=== PATIENT | male | born 1995 | race Caucasian/White ===

== ENCOUNTER 2018-10-06 15:44 | Observation (INO) | payer MEDICAID ==
[2018-10-06] MEDS ORDERED: NS 500 ML IV ONE (15:49)
[2018-10-06 16:22] LABS: PLATELET COUNT 264 10^3/uL (150-400)
[2018-10-06] MEDS ORDERED: HYDROmorphONE/DILAUDID 2 MG/ML INJ IVP ONE (16:40)
[2018-10-06] MEDS ORDERED: ONDANSETRON 4 MG/2 ML VIAL IVP ONE (16:41)
--- NOTE | 2018-10-06 16:43 | EDPHY ---
H & P Time Seen by Provider: 10/06/18 15:46 HPI/ROS: HPI Right testicular pain. 22-year-old male by private vehicle from the [facility]. I received a call from the [facility] that the patient had an ultrasound of his right testicle that demonstrated a right testicular torsion and right-sided hydrocele. This ultrasound was done this morning. The physician I spoke to at [facility] told me the patient had had testicular pain for about a week. The patient tells me that he was seen at [facility] last Saturday for right-sided testicular pain. He was placed on doxycycline for a diagnosis of epididymitis. He reports the pain got somewhat better but then returned he reports that over the weekend, the pain became significantly worse and he was seen again at the urgent care today. He obtained the ultrasound. Diagnosis of testicular torsion on the right was established and he was sent down to the emergency department for evaluation. Patient's last meal was this morning at 8:00 a.m.. Immediately after I spoke with the physician at the [facility], I called the on-call urologist, this is Dr. Castro, he was in the OR but I spoke with his nurse certified ophthalmic surgical assistant who was at his side. I explained that I had a young male coming down from the [place] with an established diagnosis of right sided testicular torsion. I explained that I would call him back as soon as the patient arrived in our emergency department. ROS: Constitutional: No fever, no chills. No weakness. Eyes: No discharge. No changes in vision. ENT: No sore throat. No nasal congestion or rhinorrhea. Respiratory: No cough. No shortness of breath. Cardiac: No chest pain, no palpitations. Gastrointestinal: No abdominal pain, no vomiting, no diarrhea. Genitourinary: No hematuria. As above. Musculoskeletal: No back pain. No neck pain. No myalgias or arthralgias. Skin: No rashes. Neurological: No headache. No focal weakness or altered sensation. Past medical history: Social history: Physical Exam: General Appearance: Alert, no distress. This patient is responding to questions appropriately and in full sentences. This patient appears well- hydrated and well-nourished. Eyes: Pupils equal and round no pallor or injection. No lid edema, erythema or injection. ENT, Mouth: Mucous membranes are moist. The pharyngeal tissues are unremarkable. No edema or swelling. No asymmetry suggestive of abscess. No erythema or exudates. Respiratory: There are no retractions, lungs are clear to auscultation with good air movement bilaterally. Cardiovascular: Regular rate and rhythm. No murmur. Gastrointestinal: Abdomen is soft and nontender, no masses, bowel sounds normal. No focal tenderness at McBurney's point. No Stephenson sign. Neurological: Motor sensory function is grossly intact. Cranial nerves are normal. Gait is normal. Skin: Warm and dry, no rashes. Musculoskeletal: Neck is supple and nontender. Extremities are symmetrical. All joints range without pain or impingement. Psychiatric: No agitation. No depression. Database: EKG: Imaging: Loaded the files of the patient's testicular ultrasound: Finding significant for large hydrocele and a vascular right testicle. Procedures: Emergency department course: Triage vital signs reviewed and are normal. The patient is afebrile. An IV was placed. He was started on IV normal saline with 1 L to be given over the next hour. He will be given 0.5 mg of IV hydromorphone for pain and 4 mg of IV Zofran for nausea. Immediately after arrival Dr. Castro was paged. 4:40 p.m., I spoke with Dr. Castro. Case discussed in detail. He will be down to see the patient shortly. 4:45 p.m., Dr. Castro at the patient's bedside, plan for operative management. 4:55 p.m., spoke with Dr. Castro, he just evaluated the patient. He will take the patient to the operating room now for further management. The patient's remaining emergency department course under my care has been uneventful. The patient was admitted to the OR in stable condition. Differential Diagnosis: The differential diagnosis on this patient includes but is not limited to testicular torsion, testicular contusion, hydrocele, epididymitis. This represents a partial list of diagnoses considered. These considerations are based on history, physical exam, past history, reassessment and diagnostic testing. Smoking Status: Never smoked Constitutional: Initial Vital Signs Temperature (C) 36.7 C 10/06/18 15:54 Heart Rate 82 10/06/18 15:54 Respiratory Rate 16 10/06/18 15:54 Blood Pressure 120/87 H 10/06/18 15:54 O2 Sat (%) 93 04/08/19 15:54 O2 Delivery Mode Room Air Allergies/Adverse Reactions: No Known Allergies Allergy (Unverified 10/06/18 15:53) Home Medications: Medication Instructions Recorded Hydrocodone/Acetaminophen [Lorton 1 - 2 each PO Q6 PRN #15 tablet 10/06/18 5-325 Tablet] Medical Decision Making - Data Points Laboratory Results: Laboratory Results 10/06/18 16:13 10/06/18 16:13 Medications Given: Discontinued Medications Bupivacaine HCl (Sensorcaine 0.5% Vial) Confirm Administered Dose 30 ml .ROUTE .STK-MED ONE Stop: 10/06/18 17:30 Last Admin: 10/06/18 19:01 Dose: 27 ml Bupivacaine HCl/Epinephrine Bitart (Bupivacaine/Epi) Confirm Administered Dose 30 ml .ROUTE .STK-MED ONE Stop: 10/06/18 17:30 Last Admin: 10/06/18 19:01 Dose: Not Given Hydromorphone HCl (Dilaudid) 0.5 mg IVP EDNOW ONE Stop: 10/06/18 16:41 Last Admin: 10/06/18 16:53 Dose: 0.5 mg Sodium Chloride (Ns) 500 mls @ 0 mls/hr IV ONCE ONE; Wide Open PRN Reason: Protocol Stop: 10/06/18 15:50 Last Admin: 10/06/18 15:55 Dose: 500 mls Lactated Ringer's (Lr) 1,000 mls @ 0 mls/hr IV ONCE ONE PRN Reason: KVO Stop: 10/06/18 17:18 Last Admin: 10/06/18 17:54 Dose: 1,000 mls Ondansetron HCl (Zofran) 4 mg IVP EDNOW ONE Stop: 10/06/18 16:42 Last Admin: 10/06/18 16:53 Dose: 4 mg Oxycodone HCl (Oxycodone Ir) 5 - 10 mg PO Q4HRS PRN PRN Reason: PACU, Pain Severe Stop: 10/06/18 19:58 Last Admin: 10/06/18 20:54 Dose: 5 mg Departure - Departure Disposition: To OP Cath/Surgery Clinical Impression: Right testicular torsion Condition: Good
[2018-10-06] MEDS ORDERED: LR 1,000 ML IV ONE (17:17)
[2018-10-06] MEDS ORDERED: BUPIVACAINE 0.5% 30 ML SDV ONE (17:29)
[2018-10-06] MEDS ORDERED: BUPIVACAINE/EPI 0.5% 30 ML SDV ONE (17:29)
[2018-10-06] MEDS ORDERED: PROPOFOL 200 MG/20 ML VIAL ONE (17:38)
[2018-10-06] MEDS ORDERED: fentaNYL 100 MCG/2 ML INJ ONE (17:38)
[2018-10-06] MEDS ORDERED: MIDAZOLAM 2 MG/2 ML VIAL ONE (17:38)
[2018-10-06] MEDS ORDERED: ONDANSETRON 4 MG/2 ML VIAL ONE (17:39)
[2018-10-06] MEDS ORDERED: METOCLOPRAMIDE 10 MG/2 ML VIAL ONE (17:39)
[2018-10-06] MEDS ORDERED: LIDOCAINE 2% JELLY 6 ML TOPICAL SYR ONE (17:39)
--- NOTE | 2018-10-06 17:52 | PDANEPAE ---
ANE Past Medical History - Pulmonary History Hx Oxygen in Use at Home: No Hx Sleep Apnea: No - Endocrine History Hx Diabetes: No ANE Review of Systems Review of Systems: ANE Patient History - Allergies Allergies/Adverse Reactions: No Known Allergies Allergy (Unverified 10/06/18 15:53) - Home Medications Home Medications: NK [No Known Home Meds] 10/06/18 [Last Taken Unknown] - NPO status NPO Since - Liquids (Date): 10/06/18 NPO Since - Liquids (Time): 15:30 NPO Since - Solids (Date): 10/06/18 NPO Since - Solids (Time): 14:00 - Smoking Hx Smoking Status: Never smoked ANE Labs/Vital Signs - Labs Result Diagrams: 10/06/18 16:13 10/06/18 16:13 - Vital Signs Blood Pressure: 128/78 Heart Rate: 68 Respiratory Rate: 18 O2 Sat (%): 94 Height: 187.96 cm Weight: 80.286 kg ANE Physical Exam - Airway Mallampati Score: Class 1 - ASA Status ASA Status: I, E ANE Anesthesia Plan Anesthesia Plan: general endotracheal anesthesia, GA w LMA
[2018-10-06] MEDS ORDERED: CEFAZOLIN 2 GM/DEXTROSE/100 ML BAG IV ONE (17:53)
--- NOTE | 2018-10-06 18:56 | POSTANESTH ---
Post Anesthetic Evaluation Cardiovascular Status: Normal, Stable Respiratory Status: Normal, Stable Level of Consciousness/Mental Status: Can Participate in Eval Pain Control: Adequate, Prn Tx Ordered Nausea/Vomiting Control: Adequate, Prn Tx Ordered Complications Possibly Related to Anesthesia: None Noted
[2018-10-06] MEDS ORDERED: MEPERIDINE 25 MG/0.5 ML AMP IVP PRN (18:58)
[2018-10-06] MEDS ORDERED: fentaNYL 100 MCG/2 ML INJ IVP PRN (18:58)
[2018-10-06] MEDS ORDERED: NALOXONE HCL 0.4 MG/ML INJ IVP PRN (18:58)
[2018-10-06] MEDS ORDERED: oxyCODONE IR 5 MG TAB PO PRN (18:58)
[2018-10-06] MEDS ORDERED: ACETAMINOPHEN 500 MG TAB PO PRN (18:58)
[2018-10-06] MEDS ORDERED: LR 500 ML IV PRN (18:58)
[2018-10-06] MEDS ORDERED: PROMETHAZINE HCL 25 MG/ML INJ IVP PRN (18:58)
--- NOTE | 2018-10-06 18:58 | POSTOPPROG ---
Post Op Note Date of Operation: 10/06/18 (ER # [id number]) Surgeon: Reymundo Cantu (OR # [id number]) Anesthesia: LMA Pre-op Diagnosis: Right testicular hemorrhage Post-op Diagnosis: Right testicular torsion w/ infarction Procedure: Scrotal exploration, right orchiectomy, left testis fixation Findings: See op note Inf/Abcess present in the surg proc area at time of surgery?: No EBL: Minimal Complications: None Bowel Protocol: N/A Clean Closure Performed: N/A Specimen(s): Right testis
[2018-10-06 20:22] VITALS: BP 115/65
[2018-10-06] MEDS ORDERED: oxyCODONE IR 5 MG TAB ONE (20:47)
--- NOTE | 2018-10-06 21:49 | GOP ---
[f rep st] OPERATIVE REPORT DATE OF OPERATION: 10/06/2018 SURGEON: Reymundo Cantu MD ANESTHESIA: Laryngeal mask with local. PREOPERATIVE DIAGNOSIS: Right testicular hemorrhage, possible torsion. POSTOPERATIVE DIAGNOSIS: Right testicular torsion with ipsilateral infarction. PROCEDURES PERFORMED: 1. Scrotal exploration and right orchiectomy. 2. Left testicular fixation. FINDINGS: Severe right testicular torsion with resulting ipsilateral testicular infarction. SPECIMENS: Right testis. ESTIMATED BLOOD LOSS: Minimal. INDICATIONS: This gentleman presented to the emergency room this afternoon with progressively worsening right scrotal pain and swelling since last . Scrotal sonography was performed earlier today at [facility] which was worrisome for the presence of intratesticular hemorrhage on the right side and possible torsion. It was recommended that he undergo intraoperative evaluation. The indications for the procedures, as well as potential risks and complications were discussed with the patient preoperatively. He appeared to understand, his questions were answered, and he wished to proceed. Written informed surgical consent was thereafter obtained. DESCRIPTION OF PROCEDURE: The patient was brought to the operating room and administered laryngeal mask anesthesia. He was carefully placed in the supine position on the operating room table. The genital area and lower abdomen were sterilely prepped and draped in standard fashion. A total of 27 cc of 0.5% Marcaine without epinephrine was used for local anesthetic. A midline anterior longitudinal scrotal incision was made with a scalpel and carried through the right scrotal dartos with electrocautery. The right testis with surrounding vaginalis was delivered. The vaginalis was under significant tension due to contained fluid. The vaginalis was opened along the anterior aspect and there was a fair amount of lightly serosanguineous fluid that was drained from the right hemiscrotum. Examination of the testicle/epididymal complex revealed tyrone infarction and hemorrhagic necrosis. The testicle and epididymal complex were twisted 720 degrees along the base of the pedicle, right at the junction between the testicular epididymal complex and proximal spermatic cord. The torsion was untwisted, but there was no evidence of any viability to the testicle. As a result, I decided to perform an orchiectomy. The proximal spermatic cord was divided into 2 segments and each segment was ligated with a series of 2-0 Vicryl free ties and stick ties. The testis and epididymis were then transected with scissors and passed off the table. It should be mentioned that the testicular epididymal complex was transected before ligating the cord stump with the above-mentioned Vicryl sutures. Once hemostasis was confirmed, I then turned my attention to performing a fixation of the left side. The left hemiscrotum was entered by incising the scrotal dartos with electrocautery. The testis inside the tunica vaginalis was opened along the anterior aspect. The testis on the left side appeared normal. I used 3 separate 5-0 Monocryl sutures to tack the left testis to the internal aspect of the scrotal wall with 2 sutures laterally and 1 inferiorly. This resulted in nice fixation. The testis was delivered back within the left hemiscrotum in proper position and lie. The incision was then closed in 1 layer utilizing a running 4-0 chromic suture that incorporated the scrotum, underlying scrotal dartos, and scrotal raphe. The wound was then dressed with Xeroform gauze, Telfa, 4x4s, scrotal fluffs, and scrotal support. The patient was then awakened , transferred to his bed, and taken to the recovery room. He tolerated the procedure well overall. COMPLICATIONS: None. DISPOSITION: He was transferred to the recovery room in stable condition. /[id number]/MODL MTDD
--- NOTE | 2018-10-07 05:30 | GCON ---
[f rep st] CONSULTATION EMERGENCY ROOM CONSULTATION NOTE DATE OF CONSULTATION: 10/06/2018 REASON FOR CONSULTATION: Right testicular pain and abnormality. HISTORY: This is a 22-year-old gentleman who started experiencing right-sided scrotal pain approxima tely 1 week ago. He was seen at [facility] at that time and diagnosed with epididymide s, subsequently started on doxycycline. He states he initially improved but then last sukhdeep amrti started experiencing progressively worsening right-sided scrotal pain and swelling. Unfortunately , he did not seek additional medical care until being seen at [facility] earlier this morning. I spo ke with the nurse practitioner at [facility] at that time and recommended that the patient undergo sc rotal sonography as soon as possible. An appointment was then made for him to see me on Saturday (flori sarkar.) Scrotal sonography was performed at [facility] in [place]. This revealed evidence britton ggestive for possible testicular torsion. The patient was instructed to present to the emergency yelena , which he did. I was asked to see the patient thereafter. The patient denies any precipitating tr auma, fevers, flu-like symptoms, dysuria, gross hematuria, nor changes in his otherwise normal voidin g pattern. Interestingly, the patient did experience an episode of right scrotal pain at around age 16 that was fairly acute in onset and dissipated within a few hours. However, the pain was severe at that time t o the point that he still remembers that episode. He denies any similar episodes of pain in the past . PAST MEDICAL HISTORY: Healthy. PAST SURGICAL HISTORY: None of pertinence. PRESENTING MEDICATIONS: Doxycycline. MEDICAL ALLERGIES: None known. FAMILY HISTORY: Not contributory. SOCIAL HISTORY: The patient is single and lives currently in the [facility]. He is a senior at the [employer] and is originally from [place]. 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 REVIEW OF SYSTEMS: Unremarkable other than mentioned above in the HPI and past medical history. PHYSICAL EXAMINATION: GENERAL: Well-developed, well-nourished white male in no acute distress prese ntly. VITAL SIGNS: Blood pressure 120/87, pulse 82, respiratory rate 16, oxygen saturation 93% on r oom air, temperature 36.7 celsius, height 188 cm, weight 80 kg, BMI 22.7. HEENT: Normocephalic/atra umatic. NECK: Normal appearance. HEART: Regular rate. CHEST: Unlabored respiratory pattern. AB DOMEN: Soft without palpable masses, no obvious organomegaly. GENITALIA: Significant right hemiscr otal swelling with overlying nonstreaking cutaneous erythema. It is difficult to palpate the right t estis due to significant patient discomfort. It is also difficult to palpate the spermatic cord at t he level of the pubic tubercle and just distal to that because of significant patient discomfort with attempted examination. Left hemiscrotum appears normal. Phallus and urethral meatus are normal. V ASCULAR: Normal femoral pulses bilaterally. NEUROLOGIC: He is alert and oriented. He answers all questions appropriately with normal mood and affect. EXTREMITIES: Warm without cyanosis, clubbing, nor significant edema. RADIOGRAPHIC STUDIES: Scrotal sonography earlier today from [facility]: Upon my review, notable for significant right intratesticular hemorrhage and possibly some hemorrhage surrounding the right t estis. The hemorrhage appears to be involving at least the superior 1/2 of the right testis. It is difficult to determine whether blood flow was documented within the testicle. There is no obvious ab normal testicular mass appreciated. The left testis and hemiscrotal complex appears normal. LABORATORY: CBC and chemistry panel are normal from today. IMPRESSION: Right testicular hemorrhage with concerns for testicular torsion that started last . Physical exam and scrotal sonography findings reviewed in detail with the patient this afternoo n. All of his questions were answered. PLAN: Proceed with emergent scrotal exploration and other indicated procedures, including possible o rchiectomy immediately. All aspects regarding surgery were reviewed in detail with the patient today . It has been explicitly explained to him that he might need to undergo orchiectomy if the testicle is indeed infarcted. /[id number]/MODL
== END 2018-10-06 21:03 | disposition home or self-care (01) ==
LOC: FSGY 17:33
PROVIDERS: ADMIT Specialist; ATTEND Specialist
DX: N44.00 Torsion of testis, unspecified (principal); N50.1 Vascular disorders of male genital organs; E86.0 Dehydration
CPT/HCPCS: 96374; J0690; J1170; J2250; J2405; J2704; J2765; J3010

== ENCOUNTER 2018-10-09 08:50 | Emergency (ER) | payer MEDICAID ==
[2018-10-09 08:55] VITALS: BP 119/70
--- NOTE | 2018-10-09 10:00 | EDPHY ---
HPI/HX/ROS/PE/MDM Narrative: CHIEF COMPLAINT: Penis swelling HPI: The patient is a 22-year-old male who underwent a right-sided orchectomy [address] Demetrius Cantu secondary to testicular torsion. His postoperative course has been uneventful. This morning when he awoke he noted swelling to the shaft of his penis. He denies worsening pain, fever or discharge. He denies pain with urination. REVIEW OF SYSTEMS: Aside from elements discussed in the HPI, a comprehensive 10-point review of systems was reviewed and is negative. PMH: Includes testicular torsion. Recent orchiectomy. SOCIAL HISTORY: Single. Denies drug or alcohol abuse. PHYSICAL EXAM: General:Patient is alert, in no acute distress. Patient appears comfortable and well appearing. ENT:Eyes are normal to inspection. ENT inspection normal. Abdomen:The abdomen is nontender to palpation. There are no peritoneal signs. There are normal bowel sounds. : There is circumferential nontender non erythematous edema to approximately the mid shaft of the penis. There is no phimosis or paraphimosis. The patient appears circumcised. There is no induration, or ecchymosis to the penis. The scrotum is diffusely swollen consistent with postoperative state. Incision looks clean dry and intact with no active discharge. Perineum normal. No active bleeding. Neuro: Oriented x3. Normal motor function. Normal sensory function. ED Course: 949: I spoke to Dr. Lam from Urology. He did not examine patient but over phone agrees with my assessment that this likely represents normal post- operative edema. I discussed with the patient. He is very pleasant and polite , but states that "the last time someone told me it was no big deal, I lost a testicle and am now suing them for malpractice." He would really like to be evaluated by a Urologist. I have asked for Dr. Cantu to be re-paged. 1015: I spoke with Dr. Cantu by phone and expressed patient's concerns. He agrees with my assessment. He is willing to come evaluate the patient after his current surgical case. I explained this to the patient and told him we would be happy to observe him here in the ED until Dr. Cantu could evaluate him , but he has decided to go home. He understands risks of not waiting for Urology evaluation including infection, need for further surgery, functional impairment etc. MDM: This patient presents with what appears to me to be dependent edema of his penile shaft secondary to his recent operation. I see no signs of infection or ischemia. The patient was unwilling to wait for formal urology exam and evaluation. We discussed strict return precautions and I recommended that the patient follow up with his urologist as soon as possible, within 48 hr. General Time Seen by Provider: 10/09/18 08:57 Initial Vital Signs: Initial Vital Signs Temperature (C) 36.5 C 10/09/18 08:53 Heart Rate 74 10/09/18 08:53 Respiratory Rate 16 10/09/18 08:53 Blood Pressure 119/70 10/09/18 08:53 O2 Sat (%) 95 10/09/18 08:53 O2 Delivery Mode Room Air Allergies/Adverse Reactions: No Known Allergies Allergy (Unverified 10/09/18 08:53) Home Medications: Medication Instructions Recorded Acetaminophen 10/09/18 Departure - Departure Disposition: Home, Routine, Self-Care Clinical Impression: Postoperative edema Condition: Good Instructions: Additional Information Additional Instructions: Follow-up with Dr. Cantu's office within 48 hr. Return to the emergency department for worsening swelling, bruising, fever or pain. Referrals: NONE *PRIMARY CARE P,. [Primary Care Provider] - As per Instructions
== END 2018-10-09 10:23 | disposition home or self-care (01) ==
DX: N48.89 Other specified disorders of penis (principal); Z98.890 Other specified postprocedural states